=== PATIENT | female | born 1970 | race Caucasian/White ===

== ENCOUNTER 2022-05-02 23:28 | Emergency (ER) | payer OTHER ==
[2022-05-02 23:54] VITALS: O2SAT 96
[2022-05-03 00:28] LABS: Appearance CLOUDY (CLEAR); Bilirubin NEGATIVE (NEGATIVE); Dipstick done @ ? MAIN LAB; Glucose 500 mg/dL (NEGATIVE); Ketones NEGATIVE (NEGATIVE); Nitrite NEGATIVE (NEGATIVE); Ph 5.5 (5-6); Protein,Urine Dip 30 (Negative); RBC SMALL Ery/ul (0-5); Specific Gravity >=1.030 (1.005-1.025); Urobilinogen 0.2 mg/dL (0-1)
[2022-05-03 00:36] LABS: Bacteria RARE /HPF (NEGATIVE); Epithelial Cells RARE /HPF (FEW); Hyaline Casts 0-2 /LPF (0-2); Mucus SLIGHT /HPF (NEGATIVE); RBC 26-50 /HPF (0-2); Urine Cultured Indicated? YES; WBC >100 /HPF (0-5)
--- NOTE | 2022-05-03 01:58 | ERPHSYRPT ---
- History of Present Illness Time Seen by Provider: 05/02/22 23:55 Source: patient Exam Limitations: no limitations Patient Subjective Stated Complaint: pt states she has had a uti for almost three weeks, has been taking cephalexin for 10 days, finished antibiotics 5 days ago and still feels that she has a uti Triage Nursing Assessment: pt alert and oriented, laying in bed states no pain at this time but urgency, and frequency Physician History: This is a 52-year-old white female who is diabetic and recently moved here from [place]. 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 In the last 3 weeks, patient has had urinary frequency and urgency. She just completed 10 days of Keflex approximately 5 days ago. Her symptoms are still present. She does not have chest pain. She does not have shortness of breath she has no abdominal pain. She has had no vomiting or diarrhea. Her blood sugar on entrance in the emergency department is 227. Timing/Duration: week(s) (3) Activites at Onset: none Quality: other (No dysuria) Onset Location: other (No dysuria) Pain Radiation: none Severity of Pain-Max: none Severity of Pain-Current: none Modifying Factors: Improves With: urinating Associated Symptoms: urinary frequency, other (Urgency), No fever, No dysuria Allergies/Adverse Reactions: No Known Drug Allergies Allergy (Unverified 05/02/22 23:54) Travel Risk - International Travel Have you traveled outside of the country in past 3 weeks: No - Coronavirus Screening Are you exhibiting any of the following symptoms?: No Close contact with a COVID-19 positive Pt in past 14-21 Days: No - Vaccine Status Have you recieved a Covid-19 vaccination: Yes Pulmonologist: geolad - Vaccination Dates Date of 2cond Vaccination (if applicable): unknown - Review of Systems Constitutional: No Symptoms Eyes: No Symptoms Ears, Nose, & Throat: No Symptoms Respiratory: No Symptoms Cardiac: No Symptoms Abdominal/Gastrointestinal: No Symptoms Genitourinary Symptoms: Frequency, Urgency Musculoskeletal: No Symptoms Skin: No Symptoms Neurological: No Symptoms Psychological: No Symptoms Endocrine: No Symptoms Hematologic/Lymphatic: No Symptoms Immunological/Allergic: No Symptoms All Other Systems: Reviewed and Negative - Past Medical History Pertinent Past Medical History: Yes Endocrine Medical History: Diabetes Type II History: Other Other Medical History: frequesnt UTI - Past Surgical History Past Surgical History: Yes Gastrointestinal: Cholecystectomy Female Surgical History: Section - Social History Smoking Status: Current every day smoker Drug Use: methamphetamines Patient Lives Alone: No - Nursing Vital Signs Nursing Vital Signs: Initial Vital Signs Temperature 96.8 F 05/02/22 23:37 Pulse Rate 116 H 05/02/22 23:37 Respiratory Rate 18 05/02/22 23:37 Blood Pressure 131/98 05/02/22 23:37 O2 Sat by Pulse Oximetry 96 05/02/22 23:37 Pain Scale Pain Intensity 0 - Physical Exam General Appearance: no apparent distress, alert, anxiety Eye Exam: PERRL/EOMI, eyes nml inspection Ears, Nose, Throat Exam: normal ENT inspection, moist mucous membranes Neck Exam: normal inspection, non-tender, supple, full range of motion Respiratory Exam: normal breath sounds, lungs clear, airway intact, No chest tenderness, No respiratory distress Cardiovascular Exam: tachycardia (Mild) Gastrointestinal/Abdomen Exam: soft, normal bowel sounds, No tenderness Pelvic Exam: not done Rectal Exam: not done Back Exam: normal inspection, normal range of motion, No CVA tenderness, No vertebral tenderness Extremity Exam: normal inspection, normal range of motion, pelvis stable Neurologic Exam: alert, oriented x 3, cooperative, bog cutter II-XII nml as tested, normal mood/affect, nml cerebellar function, nml station & gait, sensation nml Skin Exam: normal color, warm, dry Lymphatic Exam: No adenopathy SpO2 Interpretation: normal SpO2: 96 O2 Delivery: Room Air - Course Nursing assessment & vital signs reviewed: Yes Ordered Tests: Active Orders 24 hr Category Date Time Status CULTURE,URINE Stat Lab 05/02/22 23:41 Received POCT GLUCOSE Stat Lab 05/03/22 01:39 Completed UA W/RFX CULTURE Stat Lab 05/02/22 23:41 Completed Lab/Rad Data: Laboratory Results 05/03/22 05/02/22 Range/Units 01:39 23:41 POC Glucometer 227 H (74 to 106) mg/dL Urinalys Dipstick Clnc MAIN LAB Urine Color YELLOW (YELLOW) Urine Appearance CLOUDY A (CLEAR) Urine pH 5.5 (5-6) Ur Specific [place] >=1.030 A (1.005-1.025) POC Urine Protein Conf 30 A (Negative) Urine Ketones NEGATIVE (NEGATIVE) Urine Nitrite NEGATIVE (NEGATIVE) Urine Bilirubin NEGATIVE (NEGATIVE) Urine Urobilinogen 0.2 (0-1) mg/dL Urine Leukocytes MODERATE A (NEGATIVE) Urine WBC (Auto) >100 A (0-5) /HPF Urine RBC (Auto) 26-50 A (0-2) /HPF U Hyaline Cast (Auto) 0-2 (0-2) /LPF U Epithel Cells (Auto) RARE (FEW) /HPF Urine Bacteria (Auto) RARE (NEGATIVE) /HPF Urine RBC SMALL A (0-5) Salas/ul Urine Mucus (Auto) SLIGHT A (NEGATIVE) /HPF Ur Culture Indicated? YES Urine Glucose 500 A (NEGATIVE) mg/dL - Progress Progress: unchanged Air Movement: good Blood Culture(s) Obtained: No Antibiotics given: Yes Counseled pt/family regarding: lab results, diagnosis, need for follow-up - Departure Departure Disposition: Home Clinical Impression: UTI (urinary tract infection) Condition: Stable Critical Care Time: No Additional Instructions: Drink plenty of fluids. Monitor your blood sugar often. Follow-up with the office of the photography coordinator the name and phone number we gave you for further evaluation treatment and management of your diabetes. Take your antibiotics and an time fungal medication as prescribed. Prescriptions: Ciprofloxacin [Cipro 500 MG] 500 mg PO BID #14 tablet Fluconazole 100 mg [Diflucan 100 MG] 100 mg PO DAILY #2 tablet
[2022-05-03] MEDS ORDERED: Levofloxacin 500 MG Tablet PO ONE (01:59)
[2022-05-03] MEDS ORDERED: Diflucan 100 MG PO ONE (02:01)
[2022-05-03] MEDS ORDERED: Levofloxacin 500 MG Tablet ONE (02:06)
[2022-05-03 02:23] VITALS: BP 111/77; PULSE 103
== END 2022-05-03 02:25 | disposition home or self-care (01) ==
LOC: ED 23:28
DX: N39.0 Urinary tract infection, site not specified (principal); R35.0 Frequency of micturition; E11.65 Type 2 diabetes mellitus with hyperglycemia; Z72.0 Tobacco use
CPT/HCPCS: 81015; 82947; 87086; 99283; A9270-GY

== ENCOUNTER 2022-05-23 19:20 | Emergency (ER) | payer OTHER ==
[2022-05-23 20:09] LABS: Appearance Clear (Clear); Bacteria None Seen /HPF (None Seen); Bilirubin Negative (Negative); Blood Small (Negative); Epithelial Cells Rare /HPF (None Seen); Glucose, Urine >=1000 mg/dL (Negative); Hyaline Casts NONE SEEN /LPF (0-2); Ketones Trace (Negative); Leukocyte Esterase Moderate (Negative); Nitrite Negative (Negative); Ph 5.5 (4.6-8.0); Protein,Urine Dip Negative (Negative); Specific Gravity >=1.030 (1.005-1.030); Urobilinogen 0.2 mg/dL (0.2); WBC 51-100 /HPF (0-5)
[2022-05-23 20:11] LABS: ADD URINE CULTURE? YES (NO)
== END 2022-05-23 20:05 | disposition left against medical advice (07) ==
LOC: ED 19:20
DX: R39.198 Other difficulties with micturition (principal)
CPT/HCPCS: 81001; 87086; G0463; 99281

== ENCOUNTER 2023-03-06 16:10 | Emergency (ER) | payer OTHER ==
--- NOTE | 2023-03-06 16:20 | ERPHSYRPT ---
- History of Present Illness Time Seen by Provider: 03/06/23 16:19 Source: patient Exam Limitations: no limitations Physician History: This is a 53-year-old white female patient who presents to the emergency department secondary to UTI symptoms including painful urination that started this morning. Patient has a history of liver disease, diabetes and hypothyroidism. She also gets frequent, recurrent urinary tract infections. Timing/Duration: today Activites at Onset: none Quality: burning Onset Location: urethral (Painful urination) Pain Radiation: none Severity of Pain-Max: mild Severity of Pain-Current: mild (To moderate to moderate) Sexual intercourse history: non-contributory Modifying Factors: Improves With: nothing Associated Symptoms: dysuria, urinary frequency, No abdominal pain, No fever, No nausea, No vomiting Allergies/Adverse Reactions: No Known Drug Allergies Allergy (Verified 03/06/23 16:22) Home Medications: ARIPiprazole [Aripiprazole] 15 mg PO HS 01/28/23 [History] Dulaglutide [Trulicity] 3 mg SQ WEEKLY 01/28/23 [History] Empagliflozin [Jardiance] 10 mg PO DAILY 01/28/23 [History] Insulin Glargine,Hum.rec.anlog [Insulin Glargine] 40 unit SQ HS 01/28/23 [History] Levothyroxine Sodium 75 mcg PO DAILY 01/28/23 [History] Meclizine HCl 25 mg [Antivert 25 mg] 25 mg PO TID PRN 01/28/23 [History] Metformin HCl [Metformin ER Gastric] 1,000 mg PO BID 01/28/23 [History] Ondansetron [Ondansetron Odt ] 2 tab SL BID PRN 01/28/23 [History] Hx Tetanus, Diphtheria Vaccination/Date Given: Yes Hx Influenza Vaccination/Date Given: No Hx Pneumococcal Vaccination/Date Given: Yes Travel Risk - International Travel Have you traveled outside of the country in past 3 weeks: No - Coronavirus Screening Are you exhibiting any of the following symptoms?: No Close contact with a COVID-19 positive Pt in past 14-21 Days: No - Vaccine Status Have you recieved a Covid-19 vaccination: Yes Manager Primary Care: [place] - Vaccination Dates Date of 2cond Vaccination (if applicable): unknown - Review of Systems Constitutional: No Symptoms Eyes: No Symptoms Ears, Nose, & Throat: No Symptoms Respiratory: No Symptoms Cardiac: No Symptoms Abdominal/Gastrointestinal: No Symptoms Genitourinary Symptoms: Dysuria, Frequency Musculoskeletal: No Symptoms Skin: No Symptoms Neurological: No Symptoms Psychological: No Symptoms Endocrine: No Symptoms Hematologic/Lymphatic: No Symptoms Immunological/Allergic: No Symptoms All Other Systems: Reviewed and Negative - Past Medical History Pertinent Past Medical History: Yes Endocrine Medical History: Diabetes Type II GI Medical History: Other History: Other Other Medical History: frequesnt UTI, stage 3 liver failure - Past Surgical History Past Surgical History: Yes Gastrointestinal: Cholecystectomy Female Surgical History: Section - Social History Smoking Status: Current every day smoker How long have you smoked: 39 Exposure to second hand smoke: No Drug Use: methamphetamines Patient Lives Alone: No - Nursing Vital Signs Nursing Vital Signs: Initial Vital Signs Temperature 97.0 F 03/06/23 16:14 Pulse Rate 119 H 03/06/23 16:14 Blood Pressure 113/85 03/06/23 16:14 O2 Sat by Pulse Oximetry 97 03/06/23 16:14 Pain Scale Pain Intensity 6 - Physical Exam General Appearance: no apparent distress, alert, anxiety Eye Exam: PERRL/EOMI, eyes nml inspection Ears, Nose, Throat Exam: normal ENT inspection, moist mucous membranes Neck Exam: normal inspection, non-tender, supple, full range of motion Respiratory Exam: normal breath sounds, airway intact, No chest tenderness, No respiratory distress Cardiovascular Exam: tachycardia Gastrointestinal/Abdomen Exam: soft, normal bowel sounds, No tenderness, No guarding Pelvic Exam: not done Rectal Exam: not done Back Exam: normal inspection, normal range of motion, No CVA tenderness, No vertebral tenderness Extremity Exam: normal inspection, normal range of motion, pelvis stable Neurologic Exam: alert, oriented x 3, cooperative, production illustrator II-XII nml as tested, normal mood/affect, nml cerebellar function, nml station & gait, sensation nml Skin Exam: normal color, warm, dry Lymphatic Exam: No adenopathy SpO2 Interpretation: normal O2 Delivery: Room Air - Course Nursing assessment & vital signs reviewed: Yes Ordered Tests: Active Orders 24 hr Category Date Time Status CULTURE,URINE Stat Lab 03/06/23 16:46 Received UA W/RFX UR CULTURE Stat Lab 03/06/23 16:46 Completed Medication Summary Discontinued Medications Generic Name Dose Route Start Last Admin Trade Name Freq PRN Reason Stop Dose Admin Hydrocodone Bitart/Acetaminophen 1 tab 03/06/23 17:41 Hydrocodone/Apap 5/325 1 Tab Tablet PO 03/06/23 17:42 STAT ONE Ceftriaxone Sodium 1,000 mg 03/06/23 17:40 Ceftriaxone Sodium 1000 Mg Inj Vial IM 03/06/23 17:41 STAT ONE Sodium Chloride 1,000 mls @ 999 mls/hr 03/06/23 16:36 03/06/23 17:01 Sodium Chloride 0.9% 1000 Ml IV 03/06/23 17:36 Not Given .Q1H1M STA Levofloxacin 500 mg 03/06/23 17:40 Levofloxacin 500 Mg Tablet PO 03/06/23 17:41 STAT ONE Phenazopyridine HCl 200 mg 03/06/23 17:41 Phenazopyridine Hcl 200 Mg Tablet PO 03/06/23 17:42 STAT ONE Lab/Rad Data: Laboratory Results 03/06/23 Range/Units 16:46 Urine Color Yellow (Yellow) Urine Appearance Turbid A (Clear) Urine pH 5.5 (4.6-8.0) Ur Specific [place] 1.025 (1.005-1.030) Urine Protein 100 A (Negative) Urine Glucose (UA) >=1000 A (Negative) mg/dL Urine Ketones Negative (Negative) Urine Blood Large A (Negative) Urine Nitrite Positive A (Negative) Urine Bilirubin Negative (Negative) Urine Urobilinogen 0.2 (0.2) mg/dL Ur Leukocyte Esterase Moderate A (Negative) U Hyaline Cast (Auto) NONE SEEN (0-2) /LPF Urine Microscopic RBC >100 A (0-5) /HPF Urine Microscopic WBC >100 A (0-5) /HPF Ur Epithelial Cells Rare (None Seen) /HPF Urine Bacteria Few A (None Seen) /HPF Urine Culture Reflexed YES (NO) - Progress Progress: improved Air Movement: good Progress Note: 03/06/23 17:45 This patient's medical issue is 1 of low complexity. Level complex in the work- up performed is based on review of the patient's past medical history, review the patient's medication list, review the patient's drug allergy list, history of present illness and physical findings on examination. This patient is in need of a urinalysis. No other laboratory or radiographic studies are necessary. Medical Desision Making - Independent Historian Additional History obtained from: Relative/friend - Diagnostic Testing Diagnostic test were ordered, analyzed, and reviewed by me: Yes - Risk of complications The pt has a mod risk of morbidity or mortality based on: Need for prescription drug management - Departure Departure Disposition: Home Clinical Impression: UTI (urinary tract infection) Condition: Stable Critical Care Time: No Referrals: DOCTOR,NO FAMILY [Primary Care Provider] - Follow up/PCP as directed Additional Instructions: Drink plenty of fluids. If there are no contraindications, use Tylenol and ibuprofen for pain control. Call your primary care provider on 03/07/2023 to make arrangements for further evaluation and management. Take your medications as prescribed Prescriptions: Ciprofloxacin [Cipro 500 MG] 500 mg PO BID #14 tablet Phenazopyridine HCl 200 mg [Pyridium 200 mg] 200 mg PO TID #6 tablet
[2023-03-06 16:22] VITALS: BP 113/85; TEMP 97
[2023-03-06] MEDS ORDERED: Sodium Chloride 0.9% 1000 ML 1,000 ML IV STA (16:36)
[2023-03-06 17:19] LABS: ADD URINE CULTURE? YES (NO); Appearance Turbid (Clear); Bacteria Few /HPF (None Seen); Bilirubin Negative (Negative); Blood Large (Negative); Epithelial Cells Rare /HPF (None Seen); Glucose, Urine >=1000 mg/dL (Negative); Hyaline Casts NONE SEEN /LPF (0-2); Ketones Negative (Negative); Leukocyte Esterase Moderate (Negative); Nitrite Positive (Negative); Ph 5.5 (4.6-8.0); Protein,Urine Dip 100 (Negative); RBC >100 /HPF (0-5); Specific Gravity 1.025 (1.005-1.030); Urobilinogen 0.2 mg/dL (0.2); WBC >100 /HPF (0-5)
[2023-03-06] MEDS ORDERED: Rocephin 1000 MG INJ IM ONE (17:40)
[2023-03-06] MEDS ORDERED: Levofloxacin 500 MG Tablet PO ONE (17:40)
[2023-03-06] MEDS ORDERED: PYRIDIUM 200 MG PO ONE (17:41)
[2023-03-06] MEDS ORDERED: NORCO 5/325 MG PO ONE (17:41)
[2023-03-06] MEDS ORDERED: PYRIDIUM 200 MG ONE (18:05)
[2023-03-06] MEDS ORDERED: Rocephin 1000 MG INJ ONE (18:05)
[2023-03-06] MEDS ORDERED: Levofloxacin 500 MG Tablet ONE (18:05)
[2023-03-06] MEDS ORDERED: NORCO 5/325 MG ONE (18:05)
[2023-03-06 18:15] VITALS: PULSE 88; RESP 16; O2SAT 97
== END 2023-03-06 18:26 | disposition home or self-care (01) ==
LOC: ED 16:10
DX: N39.0 Urinary tract infection, site not specified (principal); R30.0 Dysuria; E11.9 Type 2 diabetes mellitus without complications; Z79.4 Long term (current) use of insulin; Z79.84 Long term (current) use of oral hypoglycemic drugs; Z79.85 Long-term (current) use of injectable non-insulin antidiabetic drugs; Z79.899 Other long term (current) drug therapy; Z72.0 Tobacco use
CPT/HCPCS: 81001; 87077; 87086; 87186; 96372; 99283; J0696; A9270-GY